=== PATIENT | male | born 2000 | race Hispanic/Latino ===

== ENCOUNTER 2023-07-04 11:27 | Emergency (ER) | payer BC, OTHER ==
[~2023-07-04] VITALS: Ht 172.7 cm; Wt 108.9 kg
[2023-07-04 11:55] VITALS: O2SAT 100
== END 2023-07-04 12:04 | disposition home or self-care (01) ==
LOC: ER 11:35
DX: Z48.02 Encounter for removal of sutures (principal)
CPT/HCPCS: 99283